=== PATIENT | female | born 1995 | race Hispanic/Latino ===

== ENCOUNTER 2016-05-23 20:54 | Emergency (ER) | payer SELFPAY ==
[2016-05-23] MEDS ORDERED: ORPHENADRINE CITRATE 30 MG/ML AMP IV ONE (21:38)
[2016-05-23] MEDS ORDERED: KETOROLAC TROMETHAMINE INJ 30 MG/ML VIAL IM ONE (21:39)
--- NOTE | 2016-05-23 21:52 | ED.PDOC ---
History of Present Illness - General Chief Complaint: Back Pain or Injury Stated Complaint: low back back Time Seen by Provider: 05/23/16 21:11 Source: patient Exam Limitations: no limitations - History of Present Illness Initial Comments: Patient presents with three days of back pain. 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 She has been in pain since. Its is throbbing and constant. Worse with movement, better with lying still. No previous episodes. No associated sx. Timing/Duration: other - 3 days but worse today Severity: moderate Improving Factors: movement Worsening Factors: movement Associated Symptoms: denies symptoms Allergies/Adverse Reactions: All[facility]ies [facility] Allergy (Verified 05/23/16 21:15) Home Medications: Ambulatory Orders Cyclobenzaprine HCl [Flexeril] 10 mg PO TID #20 tab 05/23/16 Tramadol HCl 50 mg PO Q6HR #30 tab 05/23/16 Trazodone HCl 05/23/16 Review of Systems - Review of Systems Constitutional: States: no symptoms reported EENTM: States: no symptoms reported Respiratory: States: no symptoms reported Cardiology: States: no symptoms reported Gastrointestinal/Abdominal: States: no symptoms reported Genitourinary: States: no symptoms reported Musculoskeletal: States: see HPI Skin: States: no symptoms reported Neurological: States: no symptoms reported Endocrine: States: no symptoms reported Hematologic/Lymphatic: States: no symptoms reported Past Medical History (General) - Patient Medical History Hx Asthma: No Hx Hypertension: No Hx Diabetes: No - Vaccination History Hx Tetanus, Diphtheria Vaccination: No Hx Influenza Vaccination: No Hx Pneumococcal Vaccination: No - Social History Hx Tobacco Use: Yes Hx Alcohol Use: No Hx Substance Use: No Hx Substance Use Treatment: No Hx Depression: No - Female History Patient is a Female of Child Bearing Age (10 -59 yrs old): Yes Patient : No - implant Family Medical History - Family History Mother Family History: No Known Living Status: Still Living Physical Exam - Physical Exam General Appearance: Alert, Obvious distress Ears, Nose, Throat: normal ENT inspection Neck: non-tender, full range of motion, supple Respiratory: lungs clear Cardiovascular/Chest: normal peripheral pulses, regular rate, rhythm Gastrointestinal/Abdominal: normal bowel sounds, non tender, soft Back Exam: other - Vertebrae NTTP. Right lumbar area TTP. Straight and cross- leg raises negative. Patient unable to rotatate or flex the torso without extreme pain. Flexion of the hip does not cause pain but abduction of the hip elicits severe pain. Extremity: other - see back exam Neurologic: no motor/sensory deficits, alert Skin Exam: normal color Progress - Progress Progress: 05/23/16 21:54 Norflex 60 mg IM x one. Toradol 30 mg IM x one. 05/23/16 22:37 Pain improved significantly. Patient sent home with tramadol and flexeril prescriptions. Departure - Departure Clinical Impression: Low back sprain Disposition: Discharge to Home or Self Care Condition: Good Departure Forms: ED Discharge - Pt. Copy, Patient Portal Self Enrollment Diet: resume usual diet Activity: increase activity as tolerated Prescriptions: Tramadol HCl 50 mg PO Q6HR #30 tab Cyclobenzaprine HCl [Flexeril] 10 mg PO TID #20 tab Home Medications: Ambulatory Orders Cyclobenzaprine HCl [Flexeril] 10 mg PO TID #20 tab 05/23/16 Tramadol HCl 50 mg PO Q6HR #30 tab 05/23/16 Trazodone HCl 05/23/16 Additional Instructions: Follow up with your primary care physician if symptoms have not resolved in two weeks.
[2016-05-23] MEDS ORDERED: ORPHENADRINE CITRATE 30 MG/ML AMP IM ONE (21:57)
[2016-05-23 22:49] VITALS: BP 116/74; TEMP 97.8; O2SAT 96
== END 2016-05-23 22:49 | disposition home or self-care (01) ==
LOC: ER 20:54
DX: S33.5XXA Sprain of ligaments of lumbar spine, initial encounter (principal); Z88.8 Allergy status to other drugs, medicaments and biological substances; Z87.891 Personal history of nicotine dependence; X58.XXXA Exposure to other specified factors, initial encounter; Y99.0 Civilian activity done for income or pay
CPT/HCPCS: J1885; J2360

== ENCOUNTER 2017-10-30 10:50 | Emergency (ER) | payer SELFPAY ==
[2017-10-30 11:07] VITALS: BP 137/80
--- NOTE | 2017-10-30 11:27 | ED.PDOC ---
History of Present Illness - General Chief Complaint: Dental/Mouth Stated Complaint: sores inside mouth Time Seen by Provider: 10/30/17 11:22 Source: patient Exam Limitations: no limitations - History of Present Illness Initial Comments: Magalys Shook 22 y/o female stated that she had oral and vaginal sex with her boyfriend 2 days ago and today felt painful sores inside her mouth and also felt that she might have vaginal STI.Denies treatment for STI in the past.No medical problem.Stated boyfriend ejaculated inside her mouth. Timing/Duration: other - see hpi Severity: moderate EENT Location: mouth, other - genitalia Prearrival Treatment: no prearrival treatment Presenting Symptoms: see hpi Improving Factors: nothing Worsening Factors: nothing Associated Symptoms: other - see hpi Allergies/Adverse Reactions: Allergies Aripiprazole [From Abilify] Allergy (Verified 05/23/16 21:15) Home Medications: Ambulatory Orders Cyclobenzaprine HCl [Flexeril] 10 mg PO TID #20 tab 05/23/16 Tramadol HCl 50 mg PO Q6HR #30 tab 05/23/16 Trazodone HCl 05/23/16 Tramadol HCl 50 mg PO TID PRN #10 tab 10/30/17 Valacyclovir HCl [Valtrex] 1 gm PO TID 5 Days #15 tab 10/30/17 predniSONE 20 mg PO DAILY #5 tab 10/30/17 Review of Systems - Review of Systems Constitutional: States: no symptoms reported EENTM: States: see HPI Respiratory: States: see HPI Cardiology: States: no symptoms reported Gastrointestinal/Abdominal: States: no symptoms reported Genitourinary: States: see HPI Musculoskeletal: States: no symptoms reported Skin: States: no symptoms reported Past Medical History (General) - Patient Medical History Hx Seizures: No Hx Stroke: No Hx Dementia: No Hx Asthma: No Hx of COPD: No Hx Cardiac Disorders: No Hx Congestive Heart Failure: No Hx Pacemaker: No Hx Hypertension: No Hx Thyroid Disease: No Hx Diabetes: No Hx Gastroesophageal Reflux: No Hx Renal Disease: No Hx Cancer: No Hx of HIV: No Hx Hepatitis C: No Hx MRSA: No Surgical History: no surgical history - Vaccination History Hx Tetanus, Diphtheria Vaccination: Yes Hx Influenza Vaccination: No Hx Pneumococcal Vaccination: No Immunizations Up to Date: No - Social History Hx Tobacco Use: Yes Hx Chewing Tobacco Use: No Hx Alcohol Use: No Hx Substance Use: No Hx Substance Use Treatment: No Hx Depression: No Feels Threatened In Home Enviroment: No Feels Threatened In a Relationship: No Hx Physical Abuse: No Hx Emotional Abuse: No Hx Suspected Abuse: No - Activities of Daily Living Hospice Agency (if applicable):: None - Female History Patient is a Female of Child Bearing Age (10 -59 yrs old): Yes Patient : No Family Medical History - Family History Mother Family History: No Known Living Status: Still Living Physical Exam - Physical Exam General Appearance: Alert, Comfortable, No apparent distress Eye Exam: bilateral normal Ear Exam: bilateral ear: auricle normal Nasal Exam: normal inspection Throat Exam: normal mouth inspection, pharynx normal, other - aphtae like eruption tongue and oral mucosa Neck: non-tender, supple Cardiovascular/Respiratory: regular rate, rhythm, normal peripheral pulses, normal breath sounds Abdominal Exam: non-tender, no organomegaly Neurologic: alert, oriented x 3 Skin Exam: normal color, warm/dry Progress - Progress Progress: 10/30/17 11:29 Vital Signs - 8 hr 10/30/17 10:56 Temperature 98.6 F Pulse Rate [ 86 APical] Respiratory 18 Rate Blood Pressure 137/80 [Left Arm] O2 Sat by Pulse 82 L Oximetry - Results/Orders Results/Orders: 10/30/17 11:30 URINALYSIS Stat 10/30/17 11:37 GC CHLAMYDIA RNA,TMA Stat Laboratory Results - last 24 hr 10/30/17 11:30 Urine HCG, Qual Negative - EKG/XRAY/CT CT Ordered: No CT Interpretation Call Back: No Departure - Departure Clinical Impression: Exposure to sexually transmitted disease (STD), Stomatitis and mucositis, unspecified Time of Disposition: 13:19 Disposition: Discharge to Home or Self Care Condition: Fair Departure Forms: ED Discharge - Pt. Copy, Patient Portal Self Enrollment Instructions: STD Prevention Diet: other - Avoid spicy ,greasy,hot foods.May have ice cream milk shake,baked potato,beef stew Prescriptions: predniSONE 20 mg PO DAILY #5 tab Tramadol HCl 50 mg PO TID PRN #10 tab PRN Reason: Pain Valacyclovir HCl [Valtrex] 1 gm PO TID 5 Days #15 tab Home Medications: Ambulatory Orders Cyclobenzaprine HCl [Flexeril] 10 mg PO TID #20 tab 05/23/16 Tramadol HCl 50 mg PO Q6HR #30 tab 05/23/16 Trazodone HCl 05/23/16 Tramadol HCl 50 mg PO TID PRN #10 tab 10/30/17 Valacyclovir HCl [Valtrex] 1 gm PO TID 5 Days #15 tab 10/30/17 predniSONE 20 mg PO DAILY #5 tab 10/30/17 Additional Instructions: Follow up with your primary Md 01 November 2017
[2017-10-30] MEDS ORDERED: LIDOCAINE HCL 2% (MOUTH-THROAT) 15 ML UD MT ONE (12:11)
[2017-10-30] MEDS ORDERED: ALUMINUM & MAGNESIUM HYDROXIDE 30 ML UD PO ONE (12:14)
[2017-10-30] MEDS ORDERED: diphenhydrAMINE HCL 12.5 MG/5 ML UD PO ONE (12:15)
[2017-10-30] MEDS ORDERED: LIDOCAINE HCL 2% (MOUTH-THROAT) 15 ML UD ONE (12:17)
[2017-10-30] MEDS ORDERED: MAGNESIUM HYDROXIDE 30 ML UD ONE (12:17)
[2017-10-30] MEDS ORDERED: diphenhydrAMINE HCL 12.5 MG/5 ML UD ONE (12:18)
[2017-10-30] MEDS ORDERED: MAGNESIUM HYDROXIDE 30 ML UD PO ONE (12:24)
[2017-10-30] MEDS ORDERED: AZITHROMYCIN 250 MG TAB PO ONE (12:27)
[2017-10-30] MEDS ORDERED: ACYCLOVIR 200 MG CAP PO ONE (12:30)
[2017-10-30] MEDS ORDERED: ONDANSETRON 4 MG TAB PO ONE (12:31)
[2017-10-30] MEDS ORDERED: predniSONE 10 MG TAB PO ONE (13:17)
[2017-10-30 13:50] VITALS: TEMP 98; O2SAT 98
== END 2017-10-30 13:52 | disposition home or self-care (01) ==
LOC: ER 10:50
DX: K12.1 Other forms of stomatitis (principal); Z20.2 Contact with and (suspected) exposure to infections with a predominantly sexual mode of transmission; Z87.891 Personal history of nicotine dependence
CPT/HCPCS: 81025; 87081; 87254; 87491; 87591; J0696; J7512; Q0144; Q0163

== ENCOUNTER 2017-12-25 02:44 | Emergency (ER) | payer SELFPAY ==
[2017-12-25 02:56] VITALS: TEMP 98.3
[2017-12-25] MEDS ORDERED: LIDOCAINE 1% 10 ML VIAL INJ ONE (03:23)
--- NOTE | 2017-12-25 03:42 | ED.PDOC ---
History of Present Illness - General Chief Complaint: Dental/Mouth Stated Complaint: dental pain Time Seen by Provider: 12/25/17 02:48 Source: patient Exam Limitations: no limitations - History of Present Illness Initial Comments: Magalys Shook 22 y/o female stated right jaw had been hurting dull ache for the last one week and got worse tonight.Advised to make appointment with dentist on her last visit in September but did not make appointment.. Timing/Duration: intermittent Severity: moderate EENT Location: dental Prearrival Treatment: no prearrival treatment Presenting Symptoms: dental pain Improving Factors: nothing Worsening Factors: nothing Associated Symptoms: tooth pain Allergies/Adverse Reactions: Allergies Aripiprazole [From Abilify] Allergy (Verified 05/23/16 21:15) Home Medications: Ambulatory Orders Amoxicillin [Amoxil] 1,000 mg PO BID 7 Days #30 cap 12/25/17 Seroquel 12/25/17 Review of Systems - Review of Systems Constitutional: States: no symptoms reported EENTM: States: see HPI Respiratory: States: no symptoms reported Cardiology: States: no symptoms reported Gastrointestinal/Abdominal: States: no symptoms reported Genitourinary: States: no symptoms reported Musculoskeletal: States: no symptoms reported Past Medical History (General) - Patient Medical History Hx Seizures: No Hx Stroke: No Hx Dementia: No Hx Asthma: No Hx of COPD: No Hx Cardiac Disorders: No Hx Congestive Heart Failure: No Hx Pacemaker: No Hx Hypertension: No Hx Thyroid Disease: No Hx Diabetes: No Hx Gastroesophageal Reflux: No Hx Renal Disease: No Hx Cancer: No Hx of HIV: No Hx Hepatitis C: No Hx MRSA: No - Vaccination History Hx Tetanus, Diphtheria Vaccination: Yes Hx Influenza Vaccination: No Hx Pneumococcal Vaccination: No Immunizations Up to Date: No - Social History Hx Tobacco Use: Yes Hx Chewing Tobacco Use: No Hx Alcohol Use: No Hx Substance Use: No Hx Substance Use Treatment: No Hx Depression: No Hx Physical Abuse: No Hx Emotional Abuse: No Hx Suspected Abuse: No - Female History Patient is a Female of Child Bearing Age (10 -59 yrs old): Yes Hx Last Menstrual Period: 12/24/17 Patient : No - Triage Comment ED Triage Comment: states pain to mouth, Family Medical History - Family History Mother Family History: No Known Living Status: Still Living Physical Exam - Physical Exam General Appearance: Alert, Comfortable, No apparent distress, Other - strong alcohol breath Eye Exam: bilateral normal Ear Exam: bilateral ear: auricle normal, canal normal, TM normal Nasal Exam: normal inspection Throat Exam: pharynx normal, dental tenderness - with impacted molar right lower jaw and with gum tenederness around impacted molar Neck: non-tender, full range of motion, supple, normal inspection, trachea midline Cardiovascular/Respiratory: regular rate, rhythm, no M/R/G, normal peripheral pulses Abdominal Exam: non-tender Neurologic: alert, oriented x 3 Skin Exam: normal color, warm/dry Progress - Progress Progress: 12/25/17 03:48 Vital Signs - 8 hr 12/25/17 02:53 Temperature 98.3 F Pulse Rate [ 130 H Right] Respiratory 22 Rate Blood Pressure 151/98 [Right Arm] O2 Sat by Pulse 96 Oximetry 12/25/17 03:48 Applied Lidocaine gel which relieves pain;Oral nerve block declined by patient ; Could not give narcotic pain medication since she has strong alcohol breath; patient crying since she could not get hold of mom who will pick her up;[facility] phone lines out of order. Departure - Departure Clinical Impression: Impacted third molar tooth, Pain, dental Time of Disposition: 03:55 Disposition: Discharge to Home or Self Care Condition: Fair Departure Forms: ED Discharge - Pt. Copy, Patient Portal Self Enrollment Instructions: DI for Mouth Pain, DI for Dental Pain Diet: other - SOFT DIET ONLY UNTIL BETTER Prescriptions: Amoxicillin [Amoxil] 1,000 mg PO BID 7 Days #30 cap Home Medications: Ambulatory Orders Amoxicillin [Amoxil] 1,000 mg PO BID 7 Days #30 cap 12/25/17 Seroquel 12/25/17 Additional Instructions: NEED TO CALL UP DENTIST OF CHOICE in AM 25 December 2017 for appointment or call [facility] [address] [place] [id number] phone # [phone];May take Aleve (over the counter) 1-2 tablets am/pm for pain and orajel apply 4 x a day to affected area
[2017-12-25 04:12] VITALS: BP 145/90; O2SAT 97
== END 2017-12-25 04:14 | disposition home or self-care (01) ==
LOC: ER 02:44
DX: K01.1 Impacted teeth (principal); Z88.8 Allergy status to other drugs, medicaments and biological substances; Z87.891 Personal history of nicotine dependence

== ENCOUNTER 2018-01-27 12:35 | Emergency (ER) | payer SELFPAY ==
--- NOTE | 2018-01-27 12:53 | ED.PDOC ---
History of Present Illness - General Chief Complaint: Drug or Alcohol Abuse Stated Complaint: had used meth iv Time Seen by Provider: 01/27/18 12:48 Source: family - mom Exam Limitations: no limitations - History of Present Illness Initial Comments: Magalys Shook 22 y/o female brought by mom after her daughter mentioned that she injected meth iv that was laced with other substnaces thru her right antecubital veins at about 0330h early this am and stated feels like head is blowing up and uneasy feeling since she used the illicit drug.History of meth use and was committed to [facility] stayed for 10 days in the past got sober afterwards.Has followed up with [facility] and still taking Seroquel. Timing/Duration: this afternoon Severity: moderate Episode Description: see hpi Associated Symptoms: other - see hpi Allergies/Adverse Reactions: Allergies Aripiprazole [From Abilify] Allergy (Verified 05/23/16 21:15) Home Medications: Ambulatory Orders Amoxicillin [Amoxil] 1,000 mg PO BID 7 Days #30 cap 12/25/17 Seroquel 12/25/17 Past Medical History (General) - Patient Medical History Hx Seizures: No Hx Stroke: No Hx Dementia: No Hx Asthma: No Hx of COPD: No Hx Cardiac Disorders: No Hx Congestive Heart Failure: No Hx Pacemaker: No Hx Hypertension: No Hx Thyroid Disease: No Hx Diabetes: No Hx Gastroesophageal Reflux: No Hx Renal Disease: No Hx Cancer: No Hx of HIV: No Hx Hepatitis C: No Hx MRSA: No Surgical History: no surgical history - Vaccination History Hx Tetanus, Diphtheria Vaccination: Yes Hx Influenza Vaccination: No Hx Pneumococcal Vaccination: No - Social History Hx Tobacco Use: Yes Hx Chewing Tobacco Use: No Hx Alcohol Use: Yes Hx Substance Use: Yes - methamphetamine Hx Substance Use Treatment: Yes Hx Depression: No Hx Physical Abuse: No Hx Emotional Abuse: No Hx Suspected Abuse: No - Female History Hx Last Menstrual Period: 01/19/18 Patient : No Family Medical History - Family History Mother Family History: No Known Living Status: Still Living Physical Exam - Physical Exam General Appearance: Alert, Anxious, No apparent distress Eyes, Ears, Nose, Throat Exam: PERRL/EOMI, normal ENT inspection, other - impacted molar right lower jaw Neck: non-tender, full range of motion, supple, normal inspection Respiratory: lungs clear, normal breath sounds, no respiratory distress Cardiovascular/Chest: normal peripheral pulses, no gallop, no murmur, tachycardia - HR-110 Peripheral Pulses: radial,right: 2+, radial,left: 2+ Gastrointestinal/Abdominal: normal bowel sounds, non tender, soft, no organomegaly Extremities Exam: non-tender, normal range of motion Neurological: alert, calm, oriented x 3 Appearance: appropriate appearance, neat, no memory impairment Behavior/Eye Contact/Speech: cooperative, good eye contact, normal speech Thoughts/Hallucinations: normal thought pattern, no apparent hallucination Skin Exam: normal color, warm/dry Progress - Progress Progress: 01/27/18 15:12 Vital Signs - 8 hr 01/27/18 01/27/18 01/27/18 12:43 13:00 13:30 Temperature 97.2 F L Pulse Rate [ 119 H 114 H 111 H monitor] Respiratory 28 H 32 H 32 H Rate Blood Pressure 139/97 132/89 [Left Arm] O2 Sat by Pulse 97 97 Oximetry 01/27/18 14:28 Temperature 97.2 F L Pulse Rate [ 104 H monitor] Respiratory 32 H Rate Blood Pressure 138/91 [Left Arm] O2 Sat by Pulse 98 Oximetry 01/27/18 15:13 [facility] called up and needs to follow up at [facility] office in am 28 January 2018 discuss with mom including all test result .Refused to give urine sample and deliberately dump it in the toilet - Results/Orders Results/Orders: 01/27/18 12:58 Catheter:Straight .ONCE IV Care:Saline Lock per Protoc QSHIFT URINE DRUG SCREEN, 7 ASSAY Stat HCG,QUALITATIVE URINE Stat 01/27/18 13:00 EKG STAT 01/27/18 14:03 URINALYSIS Stat 01/27/18 14:40 Referral:Mental Health ONCE Laboratory Results - last 24 hr 01/27/18 01/27/18 01/27/18 12:58 12:58 13:08 WBC 8.8 RBC 4.26 Hgb 13.5 Hct 40.3 MCV 94.5 MCH 31.7 H MCHC 33.5 RDW 13.6 Plt Count 469 H MPV 6.8 L Absolute Neuts (auto) 6.00 Absolute Lymphs (auto) 1.70 Absolute Monos (auto) 1.00 H Absolute Eos (auto) 0.00 Absolute Basos (auto) 0.10 Neutrophils % 67.9 Lymphocytes % 19.3 L Monocytes % 11.8 H Eosinophils % 0.3 L Basophils % 0.7 PT 10.4 INR 1.04 PTT (SP) 26.1 D-Dimer, Quantitative 0.21 Sodium 138 Potassium 3.0 L Chloride 103 Carbon Dioxide 24 Anion Gap 14.0 BUN 13 Creatinine 0.54 L BUN/Creatinine Ratio 24.1 H Random Glucose 93 Serum Osmolality 275.5 Calcium 9.5 Magnesium 2.0 Total Bilirubin 0.8 Direct Bilirubin 0.1 Indirect Bilirubin 0.7 AST 52 H ALT 98 H Alkaline Phosphatase 74 Creatine Kinase 290 H* CK-MB (CK-2) 4.7 H* CK-MB (CK-2) % 1.62 Troponin I < 0.02 Serum Total Protein 7.6 Albumin 4.5 Salicylates Acetaminophen < 10.0 L Ethyl Alcohol < 5.00 - EKG/XRAY/CT EKG: Sinus, Tachy, no ST T wave changes Comments: HR-102 Departure - Departure Clinical Impression: Palpitations, Methamphetamine intoxication Pain head Qualifiers: Headache type: unspecified Headache chronicity pattern: unspecified pattern Intractability: not intractable Qualified Code(s): R51 - Headache Time of Disposition: 15:18 Disposition: Discharge to Home or Self Care Condition: Fair Departure Forms: ED Discharge - Pt. Copy, Patient Portal Self Enrollment Instructions: Drug Abuse and Drug Addiction (DC), Methamphetamine, Meth Mouth Home Medications: Ambulatory Orders Amoxicillin [Amoxil] 1,000 mg PO BID 7 Days #30 cap 12/25/17 Seroquel 12/25/17 Additional Instructions: Follow up with [facility] 28 January 2018 as needed;continue with current medications
[2018-01-27] MEDS ORDERED: SODIUM CHLORIDE 0.9% 1000ML 0 ML ONE (12:58)
[2018-01-27] MEDS: LACTATED RINGERS 1,000 ML IVS ONE (13:07)
[2018-01-27 14:25] VITALS: TEMP 97.2
[2018-01-27 14:28] VITALS: BP 138/91; O2SAT 98
[2018-01-27] MEDS: MORPHINE SULFATE INJ 10 MG/ML VIAL IV ONE (19:16)
[2018-01-27] MEDS: PROMETHAZINE HCL INJ 25 MG/ML VIAL IM ONE (19:16)
== END 2018-01-27 15:30 | disposition home or self-care (01) ==
LOC: ER 12:35
DX: R00.2 Palpitations (principal); F15.129 Other stimulant abuse with intoxication, unspecified; R51 Headache
CPT/HCPCS: 80048; 80076; 80320; 80329; 82550; 82553; 84484; 84703; 85025; 85379; 85610; 85730; 93005; J2060; J7120

== ENCOUNTER 2018-06-10 19:51 | Emergency (ER) | payer SELFPAY ==
[2018-06-10 20:17] VITALS: TEMP 99.2
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
[2018-06-10] MEDS ORDERED: SODIUM CHLORIDE 0.9% 1000ML 1,000 ML IVS ONE (20:22)
[2018-06-10] MEDS ORDERED: METOPROLOL TARTRATE INJ 5 MG/5 ML VIAL IV ONE (20:22)
--- NOTE | 2018-06-10 20:57 | RAD ---
EXAM: Chest,1 View CLINICAL INDICATION: Chest pain COMPARISON: 12/25/2008 FINDINGS: A single view of the chest was obtained. The heart size is normal. The pulmonary vascularity is unremarkable. The lungs are clear. There is no consolidation, infiltrate, pleural effusion, or pneumothorax. IMPRESSION: No evidence of active pulmonary disease. Electronically signed by: Giancarlo Black MD 06/10/2018 8:54 PM CDT
[2018-06-10 21:14] VITALS: BP 139/99; O2SAT 100
== END 2018-06-10 21:35 | disposition home or self-care (01) ==
LOC: ER 19:51
DX: R00.0 Tachycardia, unspecified (principal); F15.10 Other stimulant abuse, uncomplicated; R07.1 Chest pain on breathing; Z87.891 Personal history of nicotine dependence; Z79.899 Other long term (current) drug therapy; Z88.8 Allergy status to other drugs, medicaments and biological substances
CPT/HCPCS: 36415; 71045; 80048; 80076; 80307; 81001; 82550; 82553; 83880; 84484; 84703; 85025; 85379; 85610; 85730; 93005; J2060; J7030

== ENCOUNTER 2018-08-09 02:25 | Emergency (ER) | payer OTHER ==
[2018-08-09 02:35] VITALS: TEMP 97.5; O2SAT 100
--- NOTE | 2018-08-09 04:06 | RAD ---
EXAM: XR Abdomen, 2 Views CLINICAL HISTORY: The patient is 23 years old and is Female; lower abd pain TECHNIQUE: Frontal view of the abdomen/pelvis with upright view of the abdomen. COMPARISON: No relevant prior studies available. FINDINGS: INTRAPERITONEAL SPACE: No free air. GASTROINTESTINAL TRACT: A moderate amount stool is present throughout the colon. No dilated loops of bowel are seen. There is no bowel obstruction. No abnormal calcifications or soft tissue masses are noted. BONES/JOINTS: Unremarkable. IMPRESSION: Moderate stool burden without obstruction. Electronically signed by: Vandana Youssef MD 08/09/2018 4:04 AM CDT
[2018-08-09] MEDS ORDERED: MAGNESIUM HYDROXIDE 30 ML UD PO ONE (04:39)
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
[2018-08-09 04:50] VITALS: BP 150/80
== END 2018-08-09 04:50 ==
LOC: ER 02:25
DX: K59.03 Drug induced constipation (principal); R10.2 Pelvic and perineal pain; F13.90 Sedative, hypnotic, or anxiolytic use, unspecified, uncomplicated; F15.90 Other stimulant use, unspecified, uncomplicated; F12.90 Cannabis use, unspecified, uncomplicated; Z88.8 Allergy status to other drugs, medicaments and biological substances; Z87.891 Personal history of nicotine dependence

== ENCOUNTER 2019-01-09 05:11 | Emergency (ER) | payer SELFPAY ==
--- NOTE | 2019-01-09 05:54 | RAD ---
EXAM: Two view(s) of the right elbow. INDICATION: Pain. COMPARISON: None. FINDINGS: No acute fracture or dislocation. No joint effusion. No radiopaque foreign body. No large soft tissue swelling. IMPRESSION: 1. No acute fracture. Electronically signed by: Cleve Velázquez MD 01/09/2019 5:52 AM CDT
--- NOTE | 2019-01-09 06:05 | RAD ---
EXAM: Two view(s) of the right ankle. INDICATION: Pain. COMPARISON: None. FINDINGS: A fracture of the cuboid is partially visualized. The distal tibia and fibula appear intact. The ankle mortise is intact. No radiopaque foreign body. IMPRESSION: Partially visualized fracture of the cuboid. Electronically signed by: Cleve Velázquez MD 01/09/2019 6:03 AM CDT
--- NOTE | 2019-01-09 06:07 | RAD ---
EXAM: Three view(s) of the right foot. INDICATION: Pain. COMPARISON: None. FINDINGS: There are mildly displaced fractures involving the cuboid, except the second through fourth metatarsals, and the intermediate and lateral cuneiforms. There is soft tissue swelling around the fracture sites. No radiopaque foreign body. IMPRESSION: Mildly displaced fractures involving the heads of the second through fourth metatarsals, cuboid, and intermediate and lateral cuneiforms. Electronically signed by: Cleve Velázquez MD 01/09/2019 6:06 AM CDT
--- NOTE | 2019-01-09 06:53 | ED.PDOC ---
History of Present Illness - General Chief Complaint: Lower Extremity Injury Stated Complaint: swollen rt foot Time Seen by Provider: 01/09/19 05:27 Source: patient Exam Limitations: no limitations - History of Present Illness Initial Comments: prt fell from roof approx 10 foot this am. mild lateral pain to right elbow but significant pain to mid and distal rt foot with swelling and bruising. sensation preserved and dp and pt pulses palp. no other areas of pain. Timing/Duration: momentarily Severity: severe Improving Factors: immobilization Worsening Factors: movement Associated Symptoms: denies symptoms Allergies/Adverse Reactions: Allergies Aripiprazole [From [employer]] Allergy (Verified 05/23/16 21:15) Home Medications: Ambulatory Orders Amoxicillin [Amoxil] 1,000 mg PO BID 7 Days #30 cap 12/25/17 Seroquel 12/25/17 Review of Systems - Review of Systems Constitutional: States: no symptoms reported EENTM: States: no symptoms reported Respiratory: States: no symptoms reported Cardiology: States: no symptoms reported Gastrointestinal/Abdominal: States: no symptoms reported Genitourinary: States: no symptoms reported Musculoskeletal: States: see HPI Skin: States: no symptoms reported Neurological: States: anxiety Endocrine: States: no symptoms reported All other Systems: No Change from Baseline Past Medical History (General) - Patient Medical History Hx Seizures: No Hx Stroke: No Hx Dementia: No Hx Asthma: No Hx of COPD: No Hx Cardiac Disorders: No Hx Congestive Heart Failure: No Hx Pacemaker: No Hx Hypertension: No Hx Thyroid Disease: No Hx Diabetes: No Hx Gastroesophageal Reflux: No Hx Renal Disease: No Hx Cancer: No Hx of HIV: No Hx Hepatitis C: No Hx MRSA: No Surgical History: other - Vaccination History Hx Tetanus, Diphtheria Vaccination: No Hx Influenza Vaccination: No Hx Pneumococcal Vaccination: No - Social History Hx Tobacco Use: Yes Hx Chewing Tobacco Use: No Hx Alcohol Use: Yes Hx Substance Use: Yes Hx Substance Use Treatment: Yes Hx Depression: No Hx Physical Abuse: No Hx Emotional Abuse: No Hx Suspected Abuse: No - Female History Hx Last Menstrual Period: 01/19/18 Patient : No Family Medical History - Family History Mother Family History: No Known Living Status: Still Living Physical Exam - Physical Exam General Appearance: Alert, Anxious, Other - no pain to paplation or mvt of cervical spine/neck Eye Exam: bilateral normal Ears, Nose, Throat: hearing grossly normal, normal ENT inspection Neck: full range of motion, supple Respiratory: lungs clear, normal breath sounds, no respiratory distress, no accessory muscle use Cardiovascular/Chest: normal peripheral pulses, no edema, other - tachy Peripheral Pulses: radial,right: 2+, radial,left: 2+, dorsalis pedis,right: 2+, dorsalis pedis,left: 2+, posterior tibialis,right: 2+, posterior tibialis,left: 2+ Gastrointestinal/Abdominal: non tender, soft, other - pelvis seems stable Rectal Exam: deferred Back Exam: normal inspection, no CVA tenderness, no vertebral tenderness Extremity: no calf tenderness, normal capillary refill, other - see hpi Neurologic: welding technician II-XII nml as tested, no motor/sensory deficits, alert, oriented x 3, other - mvt limited by pain Skin Exam: other - bruising to dorsal aspect of right foot Comments: Vital Signs - 24 hr 01/09/19 01/09/19 05:20 06:11 Temperature 99.2 F Pulse Rate [ 143 H 96 H Left Apical] Respiratory 22 18 Rate Blood Pressure 143/105 118/83 [Left Arm] O2 Sat by Pulse 98 98 Oximetry Progress - Progress Progress: 01/09/19 06:56 the patient is a 23 yo female presenting to the er after having accidentally fallen off of a roof approximately 10ft and sustaining a multiple closed minimally displaced fractures to the right mid and distal foot. posteriors splint was applied. nwb. she is neurovascularly in tact at this time but will need monitoring short term for the development of compartment syndrome. dp pulse is palp after splinting. lab work for baseline will be forwarded. disc of images sent with patient. transferring to [facility] for podiatry eval and surgical intervention if needed. vital signs stable. no other significant injuries apparent at this time. - Results/Orders Results/Orders: xray of right elbow shows no fracture or dislocation. xray of right foot and ankle show mildly displaced fractures of the cuboi, 2,3,4 metatarsal heads, and intermediate and lateral cuneiform bones. Departure - Departure Clinical Impression: Multiple fractures of foot, closed Qualifiers: Encounter type: initial encounter Laterality: right Qualified Code(s): S92.901A - Unspecified fracture of right foot, initial encounter for closed fracture Disposition: Transfer to Hospital Departure Forms: ED Discharge - Pt. Copy, Patient Portal Self Enrollment Home Medications: Ambulatory Orders Amoxicillin [Amoxil] 1,000 mg PO BID 7 Days #30 cap 12/25/17 Seroquel 12/25/17 Transfer to Outside Facility - Transfer Information Decision to Transfer Date: 01/09/19 Decision to Transfer Time: 07:01 Reason for Transfer: required specialist not available Accepting Facility: [facility] Addendum entered and electronically signed by Zac Iraheta MD 01/09/19 07:32: Departure - Departure Clinical Impression: Multiple fractures of foot, closed Qualifiers: Encounter type: initial encounter Laterality: right Qualified Code(s): S92.901A - Unspecified fracture of right foot, initial encounter for closed fracture Disposition: Transfer to Hospital Departure Forms: ED Discharge - Pt. Copy, Patient Portal Self Enrollment Instructions: DI for Leg Pain Home Medications: Ambulatory Orders Amoxicillin [Amoxil] 1,000 mg PO BID 7 Days #30 cap 12/25/17 Seroquel 12/25/17 ED Addendum - ED Addendum Addendum: patient labs came back prior to discharge and chemistry is essentially normal, patient is not and normal hemoglobin. patient wbc was slightly elevated but I do not think is due to an unidentified infection. patient is stable to transfer
[2019-01-09] MEDS ORDERED: HYDROmorphone HCL INJ 2 MG/ML VIAL IV ONE (07:51)
[2019-01-09 08:43] VITALS: TEMP 98.8; O2SAT 99
[2019-01-09] MEDS ORDERED: ONDANSETRON INJ 4 MG/2 ML VIAL ONE (08:55)
[2019-01-09] MEDS ORDERED: ONDANSETRON INJ 4 MG/2 ML VIAL IV ONE (08:56)
[2019-01-09 18:24] VITALS: BP 144/92
== END 2019-01-09 08:55 | disposition short-term general hospital (02) ==
LOC: ER 05:11
DX: S92.321A Displaced fracture of second metatarsal bone, right foot, initial encounter for closed fracture (principal); S92.331A Displaced fracture of third metatarsal bone, right foot, initial encounter for closed fracture; S92.341A Displaced fracture of fourth metatarsal bone, right foot, initial encounter for closed fracture; S92.211A Displaced fracture of cuboid bone of right foot, initial encounter for closed fracture; S92.231A Displaced fracture of intermediate cuneiform of right foot, initial encounter for closed fracture; S92.241A Displaced fracture of medial cuneiform of right foot, initial encounter for closed fracture; M25.521 Pain in right elbow; Z87.891 Personal history of nicotine dependence; W13.2XXA Fall from, out of or through roof, initial encounter; Z88.8 Allergy status to other drugs, medicaments and biological substances; Y92.008 Other place in unspecified non-institutional (private) residence as the place of occurrence of the external cause
CPT/HCPCS: 36415; 73070; 73600; 73630; 80053; 84703; 85025; J1170; J2405

== ENCOUNTER 2019-03-08 11:23 | Emergency (ER) | payer SELFPAY ==
[2019-03-08] MEDS ORDERED: SODIUM CHLORIDE 0.9% (FLUSH) 10 ML SYG IV PRN (11:30)
[2019-03-08] MEDS ORDERED: SODIUM CHLORIDE 0.9% 1000ML 1,000 ML IVS PRN (11:30)
--- NOTE | 2019-03-08 11:36 | ED.PDOC ---
History of Present Illness - General Time Seen by Provider: 03/08/19 11:30 Source: patient - History of Present Illness Initial Comments: 24 yo female bib EMS for cc of possible overdose. Pt reports she has been using drugs and alcohol for several days now. States this morning she took "20 units of morphine" IV and then "snorted some white powder" x2 which she thought was meth. Shortly after she reports visual hallucinations and trouble seeing and both of her arms feeling numb. She became concerned that some other substance was in the powder. Reports similar sx's from GHB intoxication before. EMS called. Pt given 0.5 Narcan IM en route with little change in mental status (awake and alert on scene). She reports she is feeling a lot better now but is anxious. Also reports drinking alcohol through the night and taking a couple tablets of Clonopin overnight as well. Denies currently any chest pain, dyspnea, palpitations, abd pain, fevers, chills. Having some intermittent nausea. Allergies/Adverse Reactions: Allergies Aripiprazole [From [employer]] Allergy (Verified 03/08/19 11:55) Home Medications: Ambulatory Orders NK 03/08/19 Review of Systems - Review of Systems Review of Systems: 03/09/19 03:24 as per HPI All other Systems: Reviewed and Negative Past Medical History (General) - Patient Medical History Hx Seizures: No Hx Stroke: No Hx Dementia: No Hx Asthma: No Hx of COPD: No Hx Cardiac Disorders: No Hx Congestive Heart Failure: No Hx Pacemaker: No Hx Hypertension: No Hx Thyroid Disease: No Hx Diabetes: No Hx Gastroesophageal Reflux: No Hx Renal Disease: No Hx Cancer: No Hx of HIV: No Hx Hepatitis C: No Hx MRSA: No - Vaccination History Hx Tetanus, Diphtheria Vaccination: No Hx Influenza Vaccination: No Hx Pneumococcal Vaccination: No - Social History Hx Tobacco Use: Yes Hx Chewing Tobacco Use: No Hx Alcohol Use: Yes Hx Substance Use: Yes Hx Substance Use Treatment: Yes Hx Depression: No Hx Physical Abuse: No Hx Emotional Abuse: No Hx Suspected Abuse: No - Female History Hx Last Menstrual Period: 01/19/18 Patient : No Family Medical History - Family History Mother Family History: No Known Living Status: Still Living Progress - Progress Progress: 03/08/19 14:00 Acute intoxication -multidrug intoxication: alcohol, meth, morphine, Clonopin, ?others -acute sx's of anxiety, hallucinations, etc... -pt stable, maintained ABC's since arrival, vitals have remained wnl. After approx 3 hours observation in ED, pt had rapidly sobered up and appeared clinically stable for discharge. Her drug screens returned positive for meth and cannabinoids, actually negative for all others including opioids and alcohol. All other labs and work-up including CXR pretty unremarkable. Discussed illicit substance cessation, especially opioids given high risk of with overdose along with high addictive potentials. Pt states she is going to check with her [facility] provider this week to look at potential rehab facilities to place her in. Advised close PCP f/u and strict ED return warnings given. -dc home in good condition Milo Hernandez MD Billing #[id number] 03/09/19 03:25 - Results/Orders Results/Orders: 03/08/19 11:31 IV Care:Saline Lock per [employer] QSHIFT Telemetry Q4H 03/08/19 11:45 EKG STAT 03/08/19 12:24 Urine Culture Stat Laboratory Results - last 24 hr 03/08/19 03/08/19 03/08/19 11:31 11:37 11:37 WBC 8.3 RBC 5.16 Hgb 15.5 Hct 46.0 MCV 89.2 MCH 30.1 MCHC 33.7 RDW 16.5 H Plt Count 435 H MPV 7.3 L Absolute Neuts (auto) 5.50 Absolute Lymphs (auto) 1.90 Absolute Monos (auto) 0.70 Absolute Eos (auto) 0.00 Absolute Basos (auto) 0.10 Neutrophils % 66.8 Lymphocytes % 23.5 Monocytes % 8.6 Eosinophils % 0.3 L Basophils % 0.8 PT 10.2 INR 1.02 PTT (SP) 27.8 Sodium Potassium Chloride Carbon Dioxide Anion Gap BUN Creatinine BUN/Creatinine Ratio Random Glucose Serum Osmolality Calcium Total Bilirubin AST ALT Alkaline Phosphatase Creatine Kinase Troponin I Serum Total Protein Albumin Globulin Albumin/Globulin Ratio Serum HCG, Qual Urine Color Urine Appearance Urine pH Ur Specific [place] Urine Protein Urine Glucose (UA) Urine Ketones Urine Blood Urine Nitrite Urine Bilirubin Urine Urobilinogen Ur Leukocyte Esterase Urine RBC Urine WBC Ur Epithelial Cells Urine Bacteria Salicylates Urine Opiates Screen Negative Acetaminophen Urine Barbiturates Negative Ur Phencyclidine Scrn Negative U Amphetamin/Meth Scrn Positive H U Benzodiazepines Scrn Negative U Cocaine Metab Screen Negative U Cannabinoids Screen Positive H Ethyl Alcohol 03/08/19 03/08/19 03/08/19 11:37 11:37 11:37 WBC RBC Hgb Hct MCV MCH MCHC RDW Plt Count MPV Absolute Neuts (auto) Absolute Lymphs (auto) Absolute Monos (auto) Absolute Eos (auto) Absolute Basos (auto) Neutrophils % Lymphocytes % Monocytes % Eosinophils % Basophils % PT INR PTT (SP) Sodium 137 Potassium 3.7 Chloride 100 L Carbon Dioxide 25 Anion Gap 15.7 BUN 13 Creatinine 0.73 BUN/Creatinine Ratio 17.8 Random Glucose 108 H Serum Osmolality 274.5 L Calcium 10.2 Total Bilirubin 0.7 AST 26 ALT 27 Alkaline Phosphatase 93 Creatine Kinase 129 Troponin I < 0.02 Serum Total Protein 8.2 Albumin 4.9 Globulin 3.3 Albumin/Globulin Ratio 1.5 Serum HCG, Qual Urine Color Urine Appearance Urine pH Ur Specific [place] Urine Protein Urine Glucose (UA) Urine Ketones Urine Blood Urine Nitrite Urine Bilirubin Urine Urobilinogen Ur Leukocyte Esterase Urine RBC Urine WBC Ur Epithelial Cells Urine Bacteria Salicylates Urine Opiates Screen Acetaminophen < 10.0 L Urine Barbiturates Ur Phencyclidine Scrn U Amphetamin/Meth Scrn U Benzodiazepines Scrn U Cocaine Metab Screen U Cannabinoids Screen Ethyl Alcohol < 1.00 03/08/19 03/08/19 11:37 12:24 WBC RBC Hgb Hct MCV MCH MCHC RDW Plt Count MPV Absolute Neuts (auto) Absolute Lymphs (auto) Absolute Monos (auto) Absolute Eos (auto) Absolute Basos (auto) Neutrophils % Lymphocytes % Monocytes % Eosinophils % Basophils % PT INR PTT (SP) Sodium Potassium Chloride Carbon Dioxide Anion Gap BUN Creatinine BUN/Creatinine Ratio Random Glucose Serum Osmolality Calcium Total Bilirubin AST ALT Alkaline Phosphatase Creatine Kinase Troponin I Serum Total Protein Albumin Globulin Albumin/Globulin Ratio Serum HCG, Qual Negative Urine Color Yellow Urine Appearance Clear Urine pH 7.0 Ur Specific [place] 1.010 Urine Protein Negative Urine Glucose (UA) Negative Urine Ketones Negative Urine Blood Trace-intact H Urine Nitrite Negative Urine Bilirubin Negative Urine Urobilinogen 0.2 Ur Leukocyte Esterase Small H Urine RBC 0 Urine WBC 5-10 H Ur Epithelial Cells 3-5 Urine Bacteria Rare Salicylates Urine Opiates Screen Acetaminophen Urine Barbiturates Ur Phencyclidine Scrn U Amphetamin/Meth Scrn U Benzodiazepines Scrn U Cocaine Metab Screen U Cannabinoids Screen Ethyl Alcohol - EKG/XRAY/CT EKG: Sinus - NSR, HR 80, no ST elevations or q waves, axis normal, intervals normal, compared to 06/10/18 EKG sinus tach now resolved Departure - Departure Clinical Impression: Alcohol abuse, Drug dependence, Opioid abuse, Methamphetamine abuse, Benzodiazepine abuse Time of Disposition: 13:21 Disposition: Discharge to Home or Self Care Condition: Fair Departure Forms: ED Discharge - Pt. Copy, Patient Portal Self Enrollment Instructions: DI for Drug Abuse and Drug Addiction Diet: resume usual diet Activity: increase activity as tolerated Home Medications: Ambulatory Orders NK 03/08/19 Additional Instructions: Avoid further drug abuse. Follow up with your PCP and [facility] providers.
[2019-03-08 12:07] VITALS: TEMP 98.2
[2019-03-08] MEDS ORDERED: ONDANSETRON INJ 4 MG/2 ML VIAL ONE (12:41)
[2019-03-08 13:46] VITALS: BP 162/88; O2SAT 99
== END 2019-03-08 13:35 | disposition home or self-care (01) ==
LOC: ER 11:23
DX: F15.10 Other stimulant abuse, uncomplicated (principal); F11.10 Opioid abuse, uncomplicated; F13.10 Sedative, hypnotic or anxiolytic abuse, uncomplicated; F10.10 Alcohol abuse, uncomplicated; F19.20 Other psychoactive substance dependence, uncomplicated; F12.90 Cannabis use, unspecified, uncomplicated; R44.1 Visual hallucinations; R20.0 Anesthesia of skin; R11.0 Nausea; Z87.891 Personal history of nicotine dependence; Z88.8 Allergy status to other drugs, medicaments and biological substances
CPT/HCPCS: 36415; 80053; 80307; 80320; 80329; 81001; 82550; 84484; 84703; 85025; 85610; 85730; 87086; 93005; J2405

== ENCOUNTER 2019-04-05 06:49 | Emergency (ER) | payer SELFPAY ==
[2019-04-05] MEDS ORDERED: HYDROmorphone HCL INJ 2 MG/ML VIAL IV ONE ×3 (07:04→07:17)
[2019-04-05] MEDS ORDERED: ONDANSETRON INJ 4 MG/2 ML VIAL IV ONE ×2 (07:05→08:39)
--- NOTE | 2019-04-05 07:28 | ED.PDOC ---
History of Present Illness - General Chief Complaint: Lower Extremity Injury Stated Complaint: knee pain Time Seen by Provider: 04/05/19 07:04 Source: patient, RN notes reviewed, Vital Signs reviewed Exam Limitations: no limitations Additional Information: is a 24-year-old white female who presents today to the emergency Department with complaints of left knee pain. She states that she was going down 2 stairs when she fell and twisted her knee. She denies any previous problems with the left knee. She presented POV. Patient requesting pain medication repetitively. Medications were ordered prior to my arrival. X-ray has not been performed yet. the patient denies any other injuries. - History of Present Illness Occurred: just prior to arrival Allergies/Adverse Reactions: Allergies Aripiprazole [From [employer]] Allergy (Verified 04/05/19 07:40) Home Medications: Ambulatory Orders Naproxen [Naprosyn] 250 mg PO BID #30 tab 04/05/19 Review of Systems - Review of Systems Constitutional: States: no symptoms reported EENTM: States: no symptoms reported, other - patient reports chronic cataracts bilaterally Respiratory: States: no symptoms reported Cardiology: States: no symptoms reported Gastrointestinal/Abdominal: States: no symptoms reported Musculoskeletal: States: joint pain, other - left knee pain Skin: States: no symptoms reported Neurological: States: no symptoms reported Past Medical History (General) - Patient Medical History Hx Seizures: No Hx Stroke: No Hx Dementia: No Hx Asthma: No Hx of COPD: No Hx Cardiac Disorders: No Hx Congestive Heart Failure: No Hx Pacemaker: No Hx Hypertension: No Hx Thyroid Disease: No Hx Diabetes: No Hx Gastroesophageal Reflux: No Hx Renal Disease: No Hx Cancer: No Hx of HIV: No Hx Hepatitis C: No Hx MRSA: No - Vaccination History Hx Tetanus, Diphtheria Vaccination: No Hx Influenza Vaccination: No Hx Pneumococcal Vaccination: No - Social History Hx Tobacco Use: Yes Hx Chewing Tobacco Use: No Hx Alcohol Use: Yes Hx Substance Use: Yes Hx Substance Use Treatment: Yes Hx Depression: No Hx Physical Abuse: No Hx Emotional Abuse: No Hx Suspected Abuse: No - Female History Hx Last Menstrual Period: 01/19/18 Patient : No Family Medical History - Family History Mother Family History: No Known Living Status: Still Living Physical Exam - Physical Exam General Appearance: Agitated, Obvious distress Eyes, Ears, Nose, Throat: PERRL/EOMI Neck: non-tender, full range of motion, supple Cardiovascular/Respiratory: regular rate, rhythm, no M/R/G, normal peripheral pulses, normal breath sounds, no respiratory distress Gastrointestinal/Abdominal: non-tender Back: normal inspection, no CVA tenderness, no vertebral tenderness Leg: normal inspection Knee: limited ROM, pain, soft tissue tenderness, other - atient with noted tenderness anterior left knee, no effusion is noted no evidence of dislocation normal DP and PT pulse noted no ecchymosis present no deformity Ankle: normal inspection Foot: normal inspection Neuro/Tendon: normal sensation, normal motor functions, normal tendon functions, responds to pain Mental Status: alert, oriented x 3, other - the patient does not control her emotions very easily, she screams aloud Skin: normal color, warm/dry Progress - Progress Progress: 04/05/19 07:40 MDM: Dislocation, fracture, sprain, ligamentous tear, likely ligamentous sprain, 04/05/19 07:53 no evidence of fracture or dislocation noted on plain films. Patient will be placed in a knee immobilizer and given crutches. She will have to follow up with ortho or PCP. 04/05/19 07:59 Pt with noted cocaine and thc on drug screen. Gave her results of x rays and plans. - Results/Orders Results/Orders: Laboratory Tests 04/05/19 04/05/19 07:40 07:40 Urine Color Yellow Urine Appearance Clear Urine pH 6.0 Ur Specific [place] 1.020 Urine Protein Negative Urine Glucose (UA) Negative Urine Ketones Trace Urine Blood Negative Urine Nitrite Negative Urine Bilirubin Negative Urine Urobilinogen 0.2 Ur Leukocyte Esterase Negative Urine RBC 0 Urine WBC 0 Ur Epithelial Cells 5-10 Urine Bacteria Rare Urine Opiates Screen Negative Urine Barbiturates Negative Ur Phencyclidine Scrn Negative U Amphetamin/Meth Scrn Negative U Benzodiazepines Scrn Negative U Cocaine Metab Screen Positive H U Cannabinoids Screen Positive H IMPRESSION: Moderate suprapatellar joint effusion. No evidence for fracture or dislocation. Electronically signed by: Milo Tian MD 04/05/2019 8:52 AM [employer] [facility] Departure - Departure Clinical Impression: Substance abuse Left knee sprain Qualifiers: Encounter type: initial encounter Involved ligament of knee: unspecified ligament Qualified Code(s): S83.92XA - Sprain of unspecified site of left knee, initial encounter Time of Disposition: 08:27 Disposition: Discharge to Home or Self Care Condition: Fair Departure Forms: ED Discharge - Pt. Copy, Patient Portal Self Enrollment Instructions: DI for Leg Pain Referrals: Negro Beasley MD [Active Staff] - 1-2 Weeks Prescriptions: Naproxen [Naprosyn] 250 mg PO BID #30 tab Home Medications: Ambulatory Orders Naproxen [Naprosyn] 250 mg PO BID #30 tab 04/05/19 Additional Instructions: Recommend ice and elevation. Continue naprosyn twice a day. Use knee immobilizer and crutches until reevaluated by either pcp or Dr. Beasley.
[2019-04-05] MEDS ORDERED: KETOROLAC TROMETHAMINE INJ 60 MG/2 ML VIAL IM ONE (07:51)
[2019-04-05 08:30] VITALS: BP 147/87; TEMP 98.8; O2SAT 98
[2019-04-05] MEDS ORDERED: fentaNYL CITRATE INJ 50 MCG/ML AMP IV ONE (08:39)
== END 2019-04-05 08:33 | disposition home or self-care (01) ==
LOC: ER 06:49
DX: S83.92XA Sprain of unspecified site of left knee, initial encounter (principal); F14.10 Cocaine abuse, uncomplicated; F12.10 Cannabis abuse, uncomplicated; X50.9XXA Other and unspecified overexertion or strenuous movements or postures, initial encounter; Y92.9 Unspecified place or not applicable; Z87.891 Personal history of nicotine dependence; Z88.8 Allergy status to other drugs, medicaments and biological substances
CPT/HCPCS: 73562; 80307; 81001; J1170; J1885; J2405

== ENCOUNTER 2019-05-11 07:45 | Emergency (ER) | payer OTHER ==
[2019-05-11] MEDS ORDERED: SODIUM CHLORIDE 0.9% 1000ML 1,000 ML ONE (07:56)
[2019-05-11] MEDS ORDERED: SODIUM CHLORIDE 0.9% (FLUSH) 10 ML SYG IV PRN (07:58)
[2019-05-11] MEDS ORDERED: SODIUM CHLORIDE 0.9% 1000ML 1,000 ML IVS PRN (07:58)
[2019-05-11 08:04] VITALS: O2SAT 100
--- NOTE | 2019-05-11 08:05 | ED.PDOC ---
History of Present Illness - General Chief Complaint: General Stated Complaint: drug use with anxiety Time Seen by Provider: 05/11/19 07:58 - History of Present Illness Initial Comments: Pt is a chronic methamphetamine user , today brought by the EMS after shooting a drug which she does not know , started having severe palpitation , no sob or chest pain, Timing/Duration: 1-3 hours Severity: severe Improving Factors: nothing Worsening Factors: nothing Associated Symptoms: denies symptoms Allergies/Adverse Reactions: Allergies Aripiprazole [From [employer]] Allergy (Verified 05/11/19 08:04) Review of Systems - Review of Systems Constitutional: States: no symptoms reported EENTM: States: no symptoms reported Respiratory: States: no symptoms reported Cardiology: States: see HPI Gastrointestinal/Abdominal: States: no symptoms reported Genitourinary: States: no symptoms reported Musculoskeletal: States: no symptoms reported Skin: States: no symptoms reported Neurological: States: no symptoms reported Endocrine: States: no symptoms reported Hematologic/Lymphatic: States: no symptoms reported Past Medical History (General) - Patient Medical History Hx Seizures: No Hx Stroke: No Hx Dementia: No Hx Asthma: No Hx of COPD: No Hx Cardiac Disorders: No Hx Congestive Heart Failure: No Hx Pacemaker: No Hx Hypertension: No Hx Thyroid Disease: No Hx Diabetes: No Hx Gastroesophageal Reflux: No Hx Renal Disease: No Hx Cancer: No Hx of HIV: No Hx Hepatitis C: No Hx MRSA: No - Vaccination History Hx Tetanus, Diphtheria Vaccination: No Hx Influenza Vaccination: No Hx Pneumococcal Vaccination: No - Social History Hx Tobacco Use: Yes Hx Chewing Tobacco Use: No Hx Alcohol Use: Yes Hx Substance Use: Yes Hx Substance Use Treatment: Yes Hx Depression: No Hx Physical Abuse: No Hx Emotional Abuse: No Hx Suspected Abuse: No - Female History Hx Last Menstrual Period: 01/19/18 Patient : No Family Medical History - Family History Mother Family History: No Known Living Status: Still Living Physical Exam - Physical Exam General Appearance: Anxious, Well Developed, Well Groomed, Well Nourished Ears, Nose, Throat: hearing grossly normal, normal ENT inspection Neck: non-tender, full range of motion, supple Respiratory: chest non-tender, lungs clear, normal breath sounds, no respiratory distress, no accessory muscle use Cardiovascular/Chest: tachycardia Gastrointestinal/Abdominal: non tender, soft, no organomegaly Back Exam: normal inspection, no CVA tenderness Extremity: normal range of motion, non-tender, no pedal edema Neurologic: tapper hand II-XII nml as tested, no motor/sensory deficits, alert, normal mood/affect, oriented x 3 Skin Exam: normal color, warm/dry Progress - Progress Progress: 05/11/19 11:29 c/o having chest pain , intermittently since she is here , NTG x2 given feels much better , pain resolved , 11:30 : Currently her blood pressure is 131/84 and HR : 96 -104 , no acute complain - Results/Orders Results/Orders: 05/11/19 07:58 Sodium Chloride 0.9% (Flush) [Saline Flush Syringe] 10 ml IV PRN PRN Sodium Chloride 0.9% 1000ML [Ns 1000 ml] 1,000 ml IVS .QD 05/11/19 07:59 Telemetry Q4H 05/11/19 08:00 EKG STAT 05/11/19 11:17 Sodium Chloride 0.9% 1000ML [Ns 1000 ml] 1,000 ml IVS ONCE 05/11/19 11:21 EKG .ONCE Laboratory Results WBC 11.5 K/mm3 (4.8-10.8) H 05/11/19 08:06 RBC 4.96 M/mm3 (4.20-5.40) 05/11/19 08:06 Hgb 14.8 gm/dL (12.0-16.0) 05/11/19 08:06 Hct 45.0 % (36.0-47.0) 05/11/19 08:06 MCV 90.7 fl (81.0-99.0) 05/11/19 08:06 MCH 29.9 pg (27.0-31.0) 05/11/19 08:06 MCHC 33.0 g/dL (33.0-37.0) 05/11/19 08:06 RDW 16.3 % (11.5-14.5) H 05/11/19 08:06 Plt Count 436 K/mm3 (130-400) H 05/11/19 08:06 MPV 7.4 fl (7.40-10.4) 05/11/19 08:06 Absolute Neuts (auto) 8.40 K/uL (1.8-6.8) H 05/11/19 08:06 Absolute Lymphs (auto) 2.10 K/uL (1.0-3.4) 05/11/19 08:06 Absolute Monos (auto) 0.90 K/uL (0.2-0.8) H 05/11/19 08:06 Absolute Eos (auto) 0.00 K/uL (0.0-0.4) 05/11/19 08:06 Absolute Basos (auto) 0.10 K/uL (0.0-0.1) 05/11/19 08:06 Neutrophils % 73.1 % (42.0-78.0) 05/11/19 08:06 Lymphocytes % 18.3 % (20.0-50.0) L 05/11/19 08:06 Monocytes % 7.8 % (2.0-9.0) 05/11/19 08:06 Eosinophils % 0.2 % (1.0-5.0) L 05/11/19 08:06 Basophils % 0.6 % (0.0-2.0) 05/11/19 08:06 Sodium 137 mmol/L (135-145) 05/11/19 08:06 Potassium 2.8 mmol/L (3.6-5.0) L 05/11/19 08:06 Chloride 100 mmol/L (101-111) L 05/11/19 08:06 Carbon Dioxide 19 mmol/L (21-31) L 05/11/19 08:06 Anion Gap 20.8 (12-18) H 05/11/19 08:06 BUN 11 mg/dL (7-18) 05/11/19 08:06 Creatinine 0.95 mg/dL (0.6-1.3) 05/11/19 08:06 BUN/Creatinine Ratio 11.6 (10-20) 05/11/19 08:06 Random Glucose 182 mg/dL (70-105) H 05/11/19 08:06 Serum Osmolality 277.9 mOsm/L (275-295) 05/11/19 08:06 Calcium 10.1 mg/dL (8.4-10.2) 05/11/19 08:06 Total Bilirubin 0.6 mg/dL (0.2-1.0) 05/11/19 08:06 AST 43 IU/L (10-42) H 05/11/19 08:06 ALT 26 IU/L (10-60) 05/11/19 08:06 Alkaline Phosphatase 103 IU/L (42-121) 05/11/19 08:06 Creatine Kinase 147 IU/L (26-140) H 05/11/19 08:06 CK-MB (CK-2) 3.6 ng/mL (0.0-4.4) 05/11/19 08:06 CK-MB (CK-2) % 2.45 % (0.0-4.3) 05/11/19 08:06 Troponin I < 0.02 ng/mL (0.01-0.05) 05/11/19 10:42 Serum Total Protein 8.5 gm/dL (6.4-8.2) H 05/11/19 08:06 Albumin 5.0 g/dl (3.2-5.5) 05/11/19 08:06 Globulin 3.5 gm/dL (2.3-3.5) 05/11/19 08:06 Albumin/Globulin Ratio 1.4 (1.1-1.9) 05/11/19 08:06 Serum HCG, Qual Negative (NEGATIVE) 05/11/19 07:59 Urine Color Yellow (Yellow) 05/11/19 09:55 Urine Appearance Clear (Clear) 05/11/19 09:55 Urine pH 6.0 (4.5-7.8) 05/11/19 09:55 Ur Specific [place] 1.020 (1.005-1.030) 05/11/19 09:55 Urine Protein Negative mg/dL 05/11/19 09:55 Urine Glucose (UA) Negative mg/dL (Negative) 05/11/19 09:55 Urine Ketones 15 mg/dL (NEGATIVE) H 05/11/19 09:55 Urine Blood Negative (Negative) 05/11/19 09:55 Urine Nitrite Negative 05/11/19 09:55 Urine Bilirubin Negative (NEGATIVE) 05/11/19 09:55 Urine Urobilinogen 0.2 mg/dL (0.2-1.0) 05/11/19 09:55 Ur Leukocyte Esterase Trace (Negative) H 05/11/19 09:55 Urine RBC 0 /hpf 05/11/19 09:55 Urine WBC 0-1 /hpf 05/11/19 09:55 Ur Epithelial Cells 5-10 /hpf 05/11/19 09:55 Urine Bacteria Rare 05/11/19 09:55 Salicylates mg/dL (0-29.9) 05/11/19 08:06 Urine Opiates Screen Negative ng/mL (2000) 05/11/19 09:55 Acetaminophen < 10.0 ug/mL (10.0-30.0) L 05/11/19 08:06 Urine Barbiturates Negative ng/mL (200) 05/11/19 09:55 Ur Phencyclidine Scrn Negative ng/mL (25) 05/11/19 09:55 U Amphetamin/Meth Scrn Positive ng/mL (1000) H 05/11/19 09:55 U Benzodiazepines Scrn Negative ng/mL (200) 05/11/19 09:55 U Cocaine Metab Screen Negative ng/mL (300) 05/11/19 09:55 U Cannabinoids Screen Positive ng/mL (50) H 05/11/19 09:55 Ethyl Alcohol 0.00 mg/dL (0-79) 05/11/19 08:06 Departure - Departure Clinical Impression: Drug overdose, Hypokalemia, Chest pain Disposition: Discharge to Home or Self Care Condition: Fair Departure Forms: ED Discharge - Pt. Copy, Patient Portal Self Enrollment Diet: resume usual diet Activity: increase activity as tolerated, walking as tolerated
[2019-05-11] MEDS ORDERED: ONDANSETRON INJ 4 MG/2 ML VIAL IV ONE (08:11)
[2019-05-11] MEDS ORDERED: NITROGLYCERIN 0.4 MG 25 EA TAB SL ONE ×2 (08:21→09:07)
--- NOTE | 2019-05-11 08:42 | RAD ---
EXAM: Chest,1 View 05/11/2019 at 8:25 AM HISTORY: Shortness of breath COMPARISON: Chest one view 06/10/2018 TECHNIQUE: Chest one view portable AP upright FINDINGS: Marked decreased inspiration (decreased lung volumes) makes evaluation more difficult. Mild symmetric bilateral lower lungs/chest density on PA view most likely represents overlying breast/chest wall attenuation artifact. No lung mass, focal consolidation, pleural effusion, or pneumothorax. Bones unremarkable. IMPRESSION: Marked decreased inspiration (decreased lung volumes) makes evaluation more difficult. Mild symmetric bilateral lower lungs/chest density on PA view most likely represents overlying breast/chest wall attenuation artifact. Follow up chest radiograph 2 views (PA and lateral) in upright position with full inspiration in radiology department may be helpful. Electronically signed by: Omar Munroe MD 05/11/2019 8:38 AM [facility]
[2019-05-11] MEDS ORDERED: KETOROLAC TROMETHAMINE INJ 30 MG/ML VIAL ONE (09:01)
[2019-05-11] MEDS ORDERED: KETOROLAC TROMETHAMINE INJ 30 MG/ML VIAL IV ONE (09:02)
[2019-05-11] MEDS ORDERED: KCL 20MEQ/WATER FOR INJ 100ML 20 MEQ in PREMIX BAG 1 BAG IVPB ONE (09:05)
[2019-05-11] MEDS ORDERED: POTASSIUM CHLORIDE 20 MEQ TAB PO ONE (09:07)
[2019-05-11] MEDS ORDERED: FAMOTIDINE IV PREMIX 20 MG in PREMIX BAG 1 BAG IVPB ONE (09:09)
[2019-05-11] MEDS ORDERED: FAMOTIDINE IV PREMIX 50 ML IVPB ONE (09:11)
[2019-05-11] MEDS ORDERED: cloNIDine HCL 0.1 MG TAB ONE (11:10)
[2019-05-11] MEDS ORDERED: cloNIDine HCL 0.1 MG TAB PO ONE (11:11)
[2019-05-11] MEDS ORDERED: SODIUM CHLORIDE 0.9% 1000ML 1,000 ML IVS ONE (11:17)
[2019-05-11 11:42] VITALS: BP 145/87; TEMP 97.4
== END 2019-05-11 11:44 | disposition home or self-care (01) ==
LOC: ER 07:45
DX: T43.621A Poisoning by amphetamines, accidental (unintentional), initial encounter (principal); R07.9 Chest pain, unspecified; E87.6 Hypokalemia; R00.2 Palpitations; Z88.8 Allergy status to other drugs, medicaments and biological substances; Z87.891 Personal history of nicotine dependence
CPT/HCPCS: 36415; 71045; 80053; 80307; 80320; 80329; 81001; 82550; 82553; 84484; 84703; 85025; 93005; J1885; J2060; J2405; J3490; J7030

== ENCOUNTER 2019-08-16 10:36 | Emergency (ER) | payer SELFPAY ==
--- NOTE | 2019-08-16 10:42 | ED.PDOC ---
History of Present Illness - General Time Seen by Provider: 08/16/19 10:39 Additional Information: 24yo F who presents with anxiousness and SOB onset this AM. She reports that she has hx of anxiety. The patient admits to heavy drinking last evening. She awoke this AM and took "two" gabapentin. She subsequently noted the onset of symptoms. She reports she takes the gabapentin as prescribed by her [facility] practitioner. She denies recent illness or other medical issues. No other reported problems. - History of Present Illness Timing/Duration: 4-6 hours Severity: moderate Allergies/Adverse Reactions: Allergies Aripiprazole [From Abilify] Allergy (Verified 05/11/19 08:04) Home Medications: Ambulatory Orders Gabapentin 08/16/19 Review of Systems - Review of Systems Constitutional: Denies: chills, fever EENTM: States: no symptoms reported Respiratory: States: short of breath. Denies: wheezing Cardiology: Denies: chest pain, edema, palpitations Gastrointestinal/Abdominal: States: nausea. Denies: abdominal pain, diarrhea, vomiting Genitourinary: States: no symptoms reported Musculoskeletal: States: muscle stiffness. Denies: back pain, neck pain Skin: Denies: change in color, rash Neurological: States: anxiety, paresthesia, tingling. Denies: headache, numbness, seizure, weakness Endocrine: States: no symptoms reported Hematologic/Lymphatic: States: no symptoms reported Past Medical History (General) - Patient Medical History Hx Seizures: No Hx Stroke: No Hx Dementia: No Hx Asthma: No Hx of COPD: No Hx Cardiac Disorders: No Hx Congestive Heart Failure: No Hx Pacemaker: No Hx Hypertension: No Hx Thyroid Disease: No Hx Diabetes: No Hx Gastroesophageal Reflux: No Hx Renal Disease: No Hx Cancer: No Hx of HIV: No Hx Hepatitis C: No Hx MRSA: No - Vaccination History Hx Tetanus, Diphtheria Vaccination: No Hx Influenza Vaccination: No Hx Pneumococcal Vaccination: No - Social History Hx Tobacco Use: Yes Hx Chewing Tobacco Use: No Hx Alcohol Use: Yes Hx Substance Use: Yes Hx Substance Use Treatment: Yes Hx Depression: No Hx Physical Abuse: No Hx Emotional Abuse: No Hx Suspected Abuse: No - Female History Hx Last Menstrual Period: 01/19/18 Patient : No Family Medical History - Family History Mother Family History: No Known Living Status: Still Living Physical Exam - Physical Exam General Appearance: Anxious, Well Developed Eye Exam: bilateral normal Ears, Nose, Throat: hearing grossly normal, normal ENT inspection, normal pharynx Neck: non-tender, full range of motion, supple, normal inspection Respiratory: chest non-tender, lungs clear, normal breath sounds, no respiratory distress, no accessory muscle use Cardiovascular/Chest: normal peripheral pulses, regular rate, rhythm, no edema, no murmur Gastrointestinal/Abdominal: normal bowel sounds, non tender, soft Back Exam: normal inspection, no CVA tenderness Extremity: normal range of motion, non-tender, normal inspection 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 [facility] [employer] #[id number] 08/16/19 11:02 Pt refusing IV at this time. Admits to taking meth last weekend. 08/16/19 12:47 Patient refused xray, lab testing and IV. She has provided urine with results shown. She presently reports resolution of her symptoms and feels well. She is in no distress. We discussed her results and the limitations posed by the workup components she refused. She expressed understanding. I recommend she follow up with her treating practitioner to discuss her medications and ongoing care. The patient is welcome to return to the ED at anytime for the recommended testing or any additional concerns. 08/16/19 13:01 - Results/Orders Results/Orders: 08/16/19 10:40 BASIC METABOLIC PANEL Stat CBC (AUTOMATED) W/AUTO DIFF Stat 08/16/19 10:41 ETHYL ALCOHOL (ETOH) Stat 08/16/19 10:45 EKG STAT Laboratory Results - last 24 hr 08/16/19 08/16/19 08/16/19 11:40 12:12 12:16 Urine Color Yellow Urine Appearance Clear Urine pH 8.5 H Ur Specific [place] 1.020 Urine Protein Negative Urine Glucose (UA) Negative Urine Ketones Negative Urine Blood Negative Urine Nitrite Negative Urine Bilirubin Negative Urine Urobilinogen 0.2 Ur Leukocyte Esterase Negative Urine RBC 0 Urine WBC 0 Ur Epithelial Cells 5-10 Urine Bacteria Rare Urine HCG, Qual Negative Urine Opiates Screen Negative Urine Barbiturates Negative Ur Phencyclidine Scrn Negative U Amphetamin/Meth Scrn Negative U Benzodiazepines Scrn Negative U Cocaine Metab Screen Negative U Cannabinoids Screen Positive H Last Vital Signs Temp 98.2 F 08/16/19 10:58 Pulse 57 L 08/16/19 12:09 Resp 16 08/16/19 12:09 BP 100/67 08/16/19 12:09 Pulse Ox 98 08/16/19 12:09 - EKG/XRAY/CT EKG: Sinus - 86. Nl axis. Nl intervals., no ST T wave changes Comments: @10:55 AM Departure - Departure Clinical Impression: Shortness of breath, Acute anxiety, Medication side effect Time of Disposition: 12:44 Disposition: Discharge to Home or Self Care Condition: Good Instructions: Shortness of Breath (Dyspnea) (DC) Home Medications: Ambulatory Orders Gabapentin 08/16/19 Additional Instructions: Please follow up with your physician to discuss your medications.
[2019-08-16] MEDS: LORazepam 0.5 MG TAB PO ONE (11:13)
[2019-08-16] MEDS: SODIUM CHLORIDE 0.9% 1000ML 1,000 ML IVS ONE (11:21)
--- NOTE | 2019-08-16 12:50 | RAD ---
CHEST 1 VIEW on 08/16/2019 CLINICAL INDICATION: Shortness of breath COMPARISON: 05/11/2019 FINDINGS: The lungs are clear. Cardiac, hilar and mediastinal contours are within normal limits. Pulmonary vascularity is within normal limits. No bony abnormality is noted. IMPRESSION: No active disease. Electronically signed by: Duran Ryan 08/16/2019 12:49 PM CDT
[2019-08-16 13:04] VITALS: BP 126/80; TEMP 97.7; O2SAT 100
== END 2019-08-16 13:00 | disposition home or self-care (01) ==
LOC: ER 10:36
DX: R06.02 Shortness of breath (principal); F41.9 Anxiety disorder, unspecified; T42.6X5A Adverse effect of other antiepileptic and sedative-hypnotic drugs, initial encounter; F17.200 Nicotine dependence, unspecified, uncomplicated; Y92.9 Unspecified place or not applicable